=== PATIENT | female | born 2000 | race Caucasian/White ===

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

== ENCOUNTER 2021-06-26 03:00 | Emergency (ER) | payer OTHER ==
[~2021-06-26] VITALS: Ht 167.7 cm; Wt 59.0 kg
[~2021-06-26 03:00] MED LIST: ACHD5005 PO
[2021-06-26 03:53] LABS: BILIRUBIN,URINE NEGATIVE (NEGATIVE); CLARITY,URINE CLEAR; COLOR,URINE YELLOW; GLUCOSE, URINE (UA) NEGATIVE (NEGATIVE); KETONES,URINE NEGATIVE (NEGATIVE); LEUKOCYTE ESTERASE ,URINE TRACE (NEGATIVE); NITRITE,URINE NEGATIVE (NEGATIVE); PROTEIN,URINE NEGATIVE (NEGATIVE)
[2021-06-26 04:02] LABS: BACTERIA,URINE FEW /HPF; WBC,URINE 0-2 /HPF
[2021-06-26 04:23] LABS: AMPHETAMINE SCREEN, URINE NEGATIVE (NEGATIVE); BARBITURATE SCREEN URINE NEGATIVE (NEGATIVE); BENZODIAZEPINES SCREEN URINE NEGATIVE (NEGATIVE); CANNABINOID SCREEN, URINE NEGATIVE (NEGATIVE); COCAINE SCREEN URINE NEGATIVE (NEGATIVE); METHADONE STAT NEGATIVE (NEGATIVE); METHAMPHETAMINE SCREEN URINE S NEGATIVE (NEGATIVE); OPIATE SCREEN URINE NEGATIVE (NEGATIVE); OXYCODONE STAT NEGATIVE (NEGATIVE); PROPOXYPHENE STAT NEGATIVE (NEGATIVE); TRICYCLIC ANTIDEPRESSANTS SCRE NEGATIVE (NEGATIVE)
[2021-06-26 04:45] LABS: BASOPHILS % (AUTO) 0 % (0-10); EOSINOPHILS # (AUTO) 0.1 10^3/uL (0.0-0.3); EOSINOPHILS % (AUTO) 1 % (0-10); HEMATOCRIT 42 % (35-52); HEMOGLOBIN 14.3 g/dL (11.5-16.0); LYMPHOCYTES # (AUTO) 4.1 10^3/uL (1.0-4.0); LYMPHOCYTES % (AUTO) 50 % (12-44); MEAN CORPUSCULAR HEMOGLOBIN 30 pg (25-34); MEAN CORPUSCULAR HGB CONC 34 g/dL (32-36); MEAN CORPUSCULAR VOLUME 90 fL (80-99); MEAN PLATELET VOLUME 9.7 fL (9.0-12.2); MONOCYTES # (AUTO) 0.6 10^3/uL (0.0-1.0); MONOCYTES % (AUTO) 8 % (0-12); NEUTROPHILS # (AUTO) 3.2 10^3/uL (1.8-7.8); NEUTROPHILS % (AUTO) 40 % (42-75); PLATELET COUNT 209 10^3/uL (130-400); WHITE BLOOD COUNT 8.1 10^3/uL (4.3-11.0)
[2021-06-26 04:52] LABS: ALBUMIN 4.3 GM/DL (3.2-4.5); CHLORIDE 107 MMOL/L (98-107); POTASSIUM 3.7 MMOL/L (3.6-5.0); SODIUM 142 MMOL/L (135-145)
[2021-06-26 04:53] LABS: CALCIUM 9.5 MG/DL (8.5-10.1)
[2021-06-26 04:54] LABS: GLUCOSE 87 MG/DL (70-105); TOTAL PROTEIN 7.4 GM/DL (6.4-8.2)
[2021-06-26 04:55] LABS: CARBON DIOXIDE 21 MMOL/L (21-32)
[2021-06-26 04:56] LABS: BILIRUBIN,TOTAL 0.4 MG/DL (0.1-1.0)
[2021-06-26 04:58] LABS: ALKALINE PHOSPHATASE 46 U/L (40-136); CREATININE SERUM 0.86 MG/DL (0.60-1.30); GFR ESTIMATED 83
[2021-06-26 04:59] LABS: BUN/CREATININE RATIO 16
[2021-06-26 05:01] LABS: ALANINE AMINOTRANSFERASE 22 U/L (0-55); MAGNESIUM 1.8 MG/DL (1.6-2.4)
--- NOTE | 2021-06-26 06:28 | ED General ---
General Chief Complaint: Chest Pain Stated Complaint: CHEST PAIN/HEAVINESS/SOA Nursing Triage Note: PT AMBULATES TO ROOM #9 W/CO INTERMITTENT CHEST DISCOMFORT X2WKS. PT DESCRIBES CHEST DISCOMFORT "PRESSURE." REPORTS EPISODES HAVE BECOME MORE FREQUENT AND LONGER IN DURATION. RATES CHEST DISCOMFORT 05/21. Source of Information: Patient History of Present Illness Date Seen by Provider: Jun 26, 2021 Time Seen by Provider: 02:55 Initial Comments PT ARRIVES VIA POV FROM HOME C/O INTERMITTENT CHEST PRESSURE/HEAVINESS FOR THE LAST 2 WEEKS STATES SHE FEELS LIKE SHE CAN'T BREATHE WHEN SHE HAS THE PAIN EPISODES ARE BECOMING MORE FREQUENT AND LASTING LONGER PT STATES THAT IT IS CAUSING HER TO BECOME MORE ANXIOUS EVERY TIME THEY OCCUR NO COUGH NO FEVER / SWEATS /CHILLS NO SORE THROAT NO LOSS OF TASTE OR SMELL NO GI SYMPTOMS NO HEADACHE NO BODY ACHES HAS NOT SOUGHT CARE UNTIL TONIGHT, SYMPTOMS WERE WORSE TONIGHT THAN THEY HAVE BEEN HAS NOT TAKEN ANYTHING FOR PAIN AT ANY TIME NO HISTORY OF SIMILAR PRIOR TO 2 WEEKS AGO NO HISTORY OF CARDIAC OR RESPIRATORY PROBLEMS PT STATES SHE WAS IN ER IN [place], [place] 2 WEEKS AGO, WAS DEHYDRATED AT THAT TIME, AND WAS GIVEN IV FLUIDS AND SENT HOME PT STATES AT THAT TIME, SHE WAS WORKING AT THE [employer], SHE HAS NOT BEEN WORKING AT THE POOL SINCE THEN, AND HAS NOT BEEN OUT IN THE SUN SINCE THEN STATES THESE SYMPTOMS BEGAN RIGHT AFTER THAT ER VISIT PT DENIES ANY STRESSORS, BUT 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 [employer] STUDENT FROM [employer] Allergies and Home Medications Allergies Coded Allergies: No Known Drug Allergies (Unverified , 06/26/21) Home Medications Hydrocodone Bit/Acetaminophen 1 Tab Tab, 1 EACH PO Q4-6HR PRN for PAIN-MODERATE Prescribed by: ETHEL HOOKS on 06/19/191999 Hydroxyzine Pamoate 50 Mg Capsule, 50 MG PO Q6H PRN for ANXIETY Prescribed by: SABINE KEITA on 06/26/21648 Nitrofurantoin Monohyd/M-Cryst 100 Mg Capsule, 1 TAB PO BID Prescribed by: SABINE KEITA on 06/26/21 0649 Patient Home Medication List Home Medication List Reviewed: Yes Review of Systems Review of Systems Constitutional: no symptoms reported EENTM: no symptoms reported Respiratory: see HPI Cardiovascular: see HPI Gastrointestinal: no symptoms reported Genitourinary: no symptoms reported Musculoskeletal: no symptoms reported Skin: no symptoms reported Psychiatric/Neurological: See HPI Hematologic/Lymphatic: No Symptoms Reported Immunological/Allergic: no symptoms reported Past Gzrnkjs-Iezjqz-Cmmnfw Hx Patient Social History Tobacco Use?: No Use of E-Cig and/or Vaping dev: Yes E-Cig or Vaping type used: Nicotine Use of E-Cig and/or Vaping Nitish: Current Everyday User Substance use?: No Alcohol Use?: Yes Alcohol Frequency: Rarely Pt feels they are or have been: No Immunizations Up To Date First/Initial COVID19 Vaccinat: NONE Seasonal Allergies Seasonal Allergies: No Past Medical History Surgery/Hospitalization HX: ANKLE SURGERY Surgeries: Yes (ANKLE SURGERY) Orthopedic Respiratory: No Cardiac: No Neurological: No Genitourinary: No Gastrointestinal: No Musculoskeletal: Yes (ANKLE SURGERY) Endocrine: No HEENT: No Cancer: No Psychosocial: No Integumentary: No Blood Disorders: No Physical Exam Vital Signs Vital Signs - First Documented Capillary Refill : Less Than 3 Seconds Height, Weight, BMI Height: 5'6.00" Weight: 130lbs. oz. 58.027603za; 20.00 BMI Method:Stated General Appearance: No Apparent Distress, WD/WN, Other (DOES NOT APPEAR TO ) HEENT: PERRL/EOMI, Normal ENT Inspection Neck: Full Range of Motion, Normal Inspection, Non Tender, Supple Respiratory: Chest Non Tender, Normal Breath Sounds, No Accessory Muscle Use, No Respiratory Distress Cardiovascular: Regular Rate, Rhythm, No Edema, No JVD, No Murmur, Normal Peripheral Pulses Gastrointestinal: Non Tender, Soft Back: Normal Inspection, No CVA Tenderness, No Vertebral Tenderness Extremity: Normal Capillary Refill, Normal Inspection, Normal Range of Motion, Non Tender, No Calf Tenderness, No Pedal Edema Neurologic/Psychiatric: Alert, Oriented x3, No Motor/Sensory Deficits, Normal Mood/Affect, 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 Norm as Tested Skin: Normal Color, Warm/Dry; No Rash Progress/Results/Core Measures Suspected Sepsis SIRS Temperature: Pulse: 82 Respiratory Rate: 20 Laboratory Tests 06/26/21 04:30: White Blood Count 8.1 Blood Pressure 90 /64 Mean: 73 Laboratory Tests 06/26/21 04:30: Creatinine 0.86, Platelet Count 209, Total Bilirubin 0.4 Results/Orders Lab Results Laboratory Tests Test 06/26/21 03:30 06/26/21 03:47 06/26/21 04:30 Range/Units Influenza Type A (RT-PCR) Not Detected Not Detecte Influenza Type B (RT-PCR) Not Detected Not Detecte SARS-CoV-2 RNA (RT-PCR) Not Detected Not Detecte Urine Color YELLOW Urine Clarity CLEAR Urine pH 6.0 5-9 Urine Specific [place] 1.015 L 1.016-1.022 Urine Protein NEGATIVE NEGATIVE Urine Glucose (UA) NEGATIVE NEGATIVE Urine Ketones NEGATIVE NEGATIVE Urine Nitrite NEGATIVE NEGATIVE Urine Bilirubin NEGATIVE NEGATIVE Urine Urobilinogen 0.2 < = 1.0 MG/DL Urine Leukocyte Esterase TRACE H NEGATIVE Urine RBC (Auto) NEGATIVE NEGATIVE Urine RBC NONE /HPF Urine WBC 0-2 /HPF Urine Squamous Epithelial Cells 10-25 H /HPF Urine Crystals NONE /LPF Urine Bacteria FEW H /HPF Urine Casts NONE /LPF Urine Mucus NEGATIVE /LPF Urine Culture Indicated NO Urine Opiates Screen NEGATIVE NEGATIVE Urine Oxycodone Screen NEGATIVE NEGATIVE Urine Methadone Screen NEGATIVE NEGATIVE Urine Propoxyphene Screen NEGATIVE NEGATIVE Urine Barbiturates Screen NEGATIVE NEGATIVE Ur Tricyclic Antidepressants Screen NEGATIVE NEGATIVE Urine Phencyclidine Screen NEGATIVE NEGATIVE Urine Amphetamines Screen NEGATIVE NEGATIVE Urine Methamphetamines Screen NEGATIVE NEGATIVE Urine Benzodiazepines Screen NEGATIVE NEGATIVE Urine Cocaine Screen NEGATIVE NEGATIVE Urine Cannabinoids Screen NEGATIVE NEGATIVE White Blood Count 8.1 4.3-11.0 10^3/uL Red Blood Count 4.70 3.80-5.11 10^6/uL Hemoglobin 14.3 11.5-16.0 g/dL Hematocrit 42 35-52 % Mean Corpuscular Volume 90 80-99 fL Mean Corpuscular Hemoglobin 30 25-34 pg Mean Corpuscular Hemoglobin Concent 34 32-36 g/dL Red Cell Distribution Width 12.2 10.0-14.5 % Platelet Count 209 130-400 10^3/uL Mean Platelet Volume 9.7 9.0-12.2 fL Immature Granulocyte % (Auto) 0 % Neutrophils (%) (Auto) 40 L 42-75 % Lymphocytes (%) (Auto) 50 H 12-44 % Monocytes (%) (Auto) 8 0-12 % Eosinophils (%) (Auto) 1 0-10 % Basophils (%) (Auto) 0 0-10 % Neutrophils # (Auto) 3.2 1.8-7.8 10^3/uL Lymphocytes # (Auto) 4.1 H 1.0-4.0 10^3/uL Monocytes # (Auto) 0.6 0.0-1.0 10^3/uL Eosinophils # (Auto) 0.1 0.0-0.3 10^3/uL Basophils # (Auto) 0.0 0.0-0.1 10^3/uL Immature Granulocyte # (Auto) 0.0 0.0-0.1 10^3/uL Sodium Level 142 135-145 MMOL/L Potassium Level 3.7 3.6-5.0 MMOL/L Chloride Level 107 98-107 MMOL/L Carbon Dioxide Level 21 21-32 MMOL/L Anion Gap 14 5-14 MMOL/L Blood Urea Nitrogen 14 7-18 MG/DL Creatinine 0.86 0.60-1.30 MG/DL Estimat Glomerular Filtration Rate 83 BUN/Creatinine Ratio 16 Glucose Level 87 70-105 MG/DL Calcium Level 9.5 8.5-10.1 MG/DL Corrected Calcium 9.3 8.5-10.1 MG/DL Magnesium Level 1.8 1.6-2.4 MG/DL Total Bilirubin 0.4 0.1-1.0 MG/DL Aspartate Amino Transf (AST/SGOT) 21 5-34 U/L Alanine Aminotransferase (ALT/SGPT) 22 0-55 U/L Alkaline Phosphatase 46 40-136 U/L Troponin I < 0.028 <0.028 NG/ML B-Type Natriuretic Peptide 17.8 <100.0 PG/ML Total Protein 7.4 6.4-8.2 GM/DL Albumin 4.3 3.2-4.5 GM/DL My Orders Orders - SABINE KEITA DO Covid 19 Inhouse Test (06/26/21 03:24) Influenza A And B By Pcr (06/26/21 03:24) Drug Screen Stat (Urine) (06/26/21 03:24) Ua Culture If Indicated (06/26/21 03:24) Urine Bedside (06/26/21 03:24) Ed Iv/Invasive Line Start (06/26/21 04:32) Ekg Tracing (06/26/21 04:32) Monitor-Rhythm Ecg Trace Only (06/26/21 04:32) Chest 1 View, Ap/Pa Only (06/26/21 04:32) BNP (06/26/21 04:32) Cbc With Automated Diff (06/26/21 04:32) Comprehensive Metabolic Panel (06/26/21 04:32) Magnesium (06/26/21 04:32) Troponin I (06/26/21 04:32) Vital Signs/I&O 06/26/21 06/26/21 03:27 03:27 Temp 36.8 Pulse 82 Resp 20 B/P (MAP) 90/64 (73) Pulse Ox 99 O2 Delivery Room Air Room Air Capillary Refill : Less Than 3 Seconds Blood Pressure Mean: 73 Progress Note : Progress Note PLACED IN ISOLATION ROOM PPE WORN AT ALL TIMES COVID-19 TESTING PERFORMED VERY MARKED DELAY IN OBTAINING CXR MULTIPLE CALLS WERE MADE TO XRAY/CT DEPT WITHOUT ANSWER 0624--RN FINALLY WAS ABLE TO REACH WHITE SPOOLER TO INFORM HER OF NEED FOR XRAY. NO COMPLAINTS OF PAIN OR ANY OTHER SYMPTOMS FOR REMAINER OF ER STAY ECG Initial ECG Impression Date: Jun 26, 2021 Initial ECG Impression Time: 04:34 Initial ECG Rate: 72 Initial ECG Rhythm: Normal Sinus Diagnostic Imaging Comments CXR--NO ACUTE PROCESS, PENDING RADIOLOGIST REVIEW Reviewed: Reviewed by Me Departure Impression Primary Impression: Chest pain Additional Impressions: UTI (urinary tract infection) Anxiety Disposition: 01 HOME, SELF-CARE Condition: Stable Departure-Patient Inst. Decision time for Depature: 06:45 Referrals: NO,LOCAL PHYSICIAN (PCP) Primary Care Physician BENNY SANTIAGO MD Patient Instructions: Anxiety, Adult ED, Urinary Tract Infection, Adult ED, Chest Pain That Is Not Caused by the Heart (DC) Add. Discharge Instructions: TYLENOL AND MOTRIN NEEDED FOR PAIN LOTS OF FLUIDS--NO COFFEE, POP OR TEA FOLLOW UP WITH [facility] THIS WEEK FOR FURTHER CARE, RETURN TO ER IF WORSE All discharge instructions reviewed with patient and/or family. Voiced understanding. Scripts Hydroxyzine Pamoate (Hydroxyzine Pamoate) 50 Mg Capsule 50 MG PO Q6H PRN for ANXIETY, #15 CAP Prov: SABINE KEITA DO 06/26/21 Nitrofurantoin Monohyd/M-Cryst (Macrobid 100 mg Capsule) 100 Mg Capsule 1 TAB PO BID, #20 CAP Prov: BOSSMAN,SABINE K DO 8/15/21 SABINE KEITA DO Jun 26, 2021 06:28
[2021-06-26] MEDS ORDERED: NITR-65 PO (06:49)
[2021-06-26] MEDS ORDERED: HYDR50CA3 PO (06:49)
[2021-06-26 06:54] VITALS: BP 126/69
--- NOTE | 2021-06-26 07:21 | Diagnostic Imaging Report ---
Clinical indication: Patient with chest pain. Exam: Portable chest x-ray upright view. Comparisons: None. Findings: Lungs/pleura: Lungs are clear. There is no pneumothorax. There is no pleural effusion. Mediastinum: Unremarkable. Pulmonary vasculature: Unremarkable. Heart: Unremarkable. Bones/extrathoracic soft tissue: Unremarkable. Impression: There is no radiographic evidence of acute cardiopulmonary process. Dictated by: Dictated on workstation # [id number]
== END 2021-06-26 06:54 | disposition home or self-care (01) ==
LOC: EDUNIT# 03:00 → ER 03:02
DX: R07.9 Chest pain, unspecified (principal); N39.0 Urinary tract infection, site not specified; F41.9 Anxiety disorder, unspecified; F17.290 Nicotine dependence, other tobacco product, uncomplicated; Z20.822 Contact with and (suspected) exposure to COVID-19
CPT/HCPCS: 36415; 71045; 80053; 80306; 81000; 83735; 83880; 84484; 84703; 85025; 87636; 93005; 93041

== ENCOUNTER 2021-12-12 07:14 | Emergency (ER) | payer OTHER ==
[~2021-12-12] VITALS: Ht 167.4 cm; Wt 63.5 kg
[~2021-12-12 07:14] MED LIST changes: +HYDR50CA3 PO; +NITR-65 PO
[2021-12-12] MEDS ORDERED: IBUPROFEN TABLET 200 MG TAB PO STA (07:37)
[2021-12-12] MEDS ORDERED: ACETAMINOPHEN 500 MG TAB (TYLENOL) PO STA (07:37)
--- NOTE | 2021-12-12 07:41 | ED Chest Pain ---
General Chief Complaint: Chest Pain Stated Complaint: CHEST PAIN/LEFT ARM WEAKNESS Nursing Triage Note: PT AMBULATE TO ROOM 06 WITH C/O LEFT AXILLARY/SHOULDER PAIN. PT STATES THE PAIN STARTED LAST NIGHT. PT REPORTS LEFT ARM NUMBNESS LAST NIGHT THAT WENT AWAY. Source: patient Exam Limitations: no limitations History of Present Illness Date Seen by Provider: Dec 12, 2021 Time Seen by Provider: 07:18 Initial Comments 21-year-old with no significant past medical history coming in due to sharp, mild to moderate, left-sided chest wall pain this been going on since yesterday. The pain is intermittent. Tried ibuprofen last night which did take the edge off but still present. Does have intermittently chest pain in the center of her chest for a long time now, but this is more leftward. She says it hurts to touch and hurts to lay on last night. Denies any associated shortness of breath, cough, fever, nausea, vomiting, abdominal pain, weakness, or any other concerns. Says her left arm was tingly last night but that went away quickly. She is otherwise denying any other acute complaints. Denies any prior history of DVT or PE, no lower extremity swelling or pain, no recent surgery, no hemoptysis, is on oral contraceptive. Allergies and Home Medications Allergies Coded Allergies: No Known Drug Allergies (Unverified , 06/26/21) Patient Home Medication List Home Medication List Reviewed: Yes Hydrocodone Bit/Acetaminophen (Lortab 5 Mg Tablet) 1 Tab Tab, 1 EACH PO Q4-6HR PRN for PAIN-MODERATE Prescribed by: ETHEL HOOKS on 06/19/191999 Hydroxyzine Pamoate (Hydroxyzine Pamoate) 50 Mg Capsule, 50 MG PO Q6H PRN for ANXIETY Prescribed by: SABINE KEITA on 06/26/21648 Nitrofurantoin Monohyd/M-Cryst (Macrobid 100 mg Capsule) 100 Mg Capsule, 1 TAB PO BID Prescribed by: SABINE KEITA on 06/26/21648 Review of Systems Review of Systems Constitutional: No chills, No fever EENTM: No Blurred Vision Respiratory: Denies Cough, Denies Shortness of Air Cardiovascular: Chest Pain Gastrointestinal: Denies Abdominal Pain Genitourinary: Denies Burning Musculoskeletal: No back pain Skin: no symptoms reported Psychiatric/Neurological: No Symptoms Reported Endocrine: No Symptoms Reported Hematologic/Lymphatic: No Symptoms Reported All Other Systems Reviewed Negative Unless Noted: Yes Past Hafviem-Llkuzg-Wbmdfu Hx Patient Social History Tobacco Use?: No Smoking Status: Never a Smoker Smokeless Tobacco Frequency: Never a User Use of E-Cig and/or Vaping dev: No Use of E-Cig and/or Vaping Nitish: Never a User Substance use?: No Alcohol Use?: Yes Alcohol Frequency: Couple times a week Pt feels they are or have been: No Seasonal Allergies Seasonal Allergies: No Past Medical History Surgery/Hospitalization HX: ANKLE SURGERY Surgeries: Yes (ANKLE SURGERY) Orthopedic Respiratory: No Cardiac: No Neurological: No Genitourinary: No Gastrointestinal: No Musculoskeletal: Yes (ANKLE SURGERY) Endocrine: No HEENT: No Cancer: No Psychosocial: No Integumentary: No Blood Disorders: No Physical Exam Vital Signs Vital Signs - First Documented 12/12/21 07:21 Temp 36.1 Pulse 74 Resp 16 B/P (MAP) 125/92 (103) Capillary Refill : Less Than 3 Seconds Height, Weight, BMI Height: 5'6.00" Weight: 130lbs. oz. 58.490866yy; 22.00 BMI Method:Stated General Appearance: No Apparent Distress, WD/WN HEENT: PERRL/EOMI, Normal ENT Inspection, Pharynx Normal Neck: Full Range of Motion, Normal Inspection, Non Tender, Supple Respiratory: Lungs Clear, Normal Breath Sounds, No Accessory Muscle Use, No Respiratory Distress, Other (Left-sided chest wall tenderness to palpation that recreates her pain) Cardiovascular: Regular Rate, Rhythm, No Edema, Normal Peripheral Pulses Gastrointestinal: Normal Bowel Sounds, Non Tender, Soft; No Distended, No Guarding Extremity: Normal Capillary Refill, Normal Inspection, Normal Range of Motion, Non Tender, No Calf Tenderness, No Pedal Edema Neurologic/Psychiatric: Alert, No Motor/Sensory Deficits, Normal Mood/Affect Skin: Normal Color, Warm/Dry Lymphatic: No Adenopathy Progress/Results/Core Measures Results/Orders My Orders Orders - FANNY VINCENT MD Chest 1 View, Ap/Pa Only (12/12/21 07:37) Ekg Tracing (12/12/21 07:37) Acetaminophen Tablet (Tylenol Tablet) (12/12/21 07:37) Ibuprofen Tablet (Motrin Tablet) (12/12/21 07:37) Vital Signs/I&O 12/12/21 07:21 Temp 36.1 Pulse 74 Resp 16 B/P (MAP) 125/92 (103) Blood Pressure Mean: 103 Progress Progress Note : Progress Note 21-year-old female with above history coming in due to chest pain. ABCs were intact and vitals were stable on presentation. Physical exam reassuring, and specifically she has the exact reproduction of her pain when you push on her left upper chest. EKG sinus rhythm with no concerning findings and is normal. Chest x-ray without any obvious pneumothorax or other findings on my interpretation. Given ibuprofen and Tylenol for pain control that did help somewhat. Her risk factor for a PE would be the oral contraceptive but otherwise she has no signs and symptoms including heart rate in the 60s, not breathing hard, no signs of a DVT, and overall well-appearing. Her EKG does not show any concerning findings as well. I believe she is stable for discharge with outpatient follow-up. She was sent home with strict return precautions. Initial ECG Impression Date: Dec 12, 2021 Initial ECG Impression Time: 07:36 Initial ECG Rate: 65 Initial ECG Rhythm: Normal Sinus Comment Narrow QRS, normal axis, no significant ST changes or T wave inversions Departure Impression Primary Impression: Chest pain Qualified Codes: R07.9 - Chest pain, unspecified Disposition: 01 HOME, SELF-CARE Condition: Stable Departure-Patient Inst. Decision time for Depature: 08:13 Referrals: NO,LOCAL PHYSICIAN (PCP/Family) Primary Care Physician Patient Instructions: Chest Pain (DC) Add. Discharge Instructions: You were seen in the emergency department for chest pain. Your EKG and chest x- ray look good. Based on your exam is most likely this is a muscular cause. I recommend ibuprofen 600 mg every 6 hours for pain. You can also try heating pad on that area. If things get worse, you begin feeling significantly short of breath, or you have any concerns then either call your regular doctor or come back to the ER. Also be looking out for any significant swelling in 1 leg with significant pain in that calf. Work/School Note: School/Childcare Release, Date Seen in the Emergency Department: Dec 12, 2021 Time Dismissed from Emergency Department: 08:14 Return to School: Dec 13, 2021 Restrictions: No Restrictions Work Release Form Date Seen in the Emergency Department: Dec 12, 2021 Return to Work: Dec 13, 2021 Restrictions: No Restrictions FANNY VINCENT MD Dec 12, 2021 07:41
--- NOTE | 2021-12-12 08:07 | Diagnostic Imaging Report ---
EXAM: CHEST 1 VIEW, AP/PA ONLY INDICATION: Chest pain. COMPARISON: 06/26/2021. FINDINGS: Normal heart size and pulmonary vascularity. No dense consolidation, pleural effusion or pneumothorax. No acute osseous findings. IMPRESSION: Negative chest. Dictated by: Dictated on workstation # [id number]
[2021-12-12 08:22] VITALS: BP 118/67
== END 2021-12-12 08:22 | disposition home or self-care (01) ==
LOC: EDUNIT# 07:14 → ER 07:17
DX: R07.89 Other chest pain (principal)
CPT/HCPCS: 71045; 93005